=== PATIENT | male | born 1960 | race African-American/Black ===

== ENCOUNTER 2017-02-24 05:55 | Emergency (ER) | payer MEDICAID ==
[~2017-02-24] VITALS: Ht 188 cm; Wt 95.5 kg
[2017-02-24 05:57] VITALS: BP 163/86; PULSE 74; RESP 16; TEMP 98.7; O2SAT 97
[2017-02-24] MEDS ORDERED: OXYC1TAB35 PO (06:02)
[2017-02-24] MEDS ORDERED: METO25TA3 PO (06:02)
--- NOTE | 2017-02-24 06:06 | PD ---
HPI Chief Complaint: Bite or Sting Time Seen by Provider: 06:06 Travel History International Travel<30 days: No Contact w/Intl Traveler<30days: No Traveled to known affect area: No History of Present Illness HPI 56-year-old black male just released from a branch correction this evening presents to emergency department for evaluation of right knee pain. He states that he was bitten by a spider while in correction on the last week of January. He states that he was in [place] and felt something bite him in the knee. Since then he's had pain and tingling in his leg. He has had no fever chills. No nausea vomiting. Symptoms are mild. PFSH Past Medical History Narrative Medical Hypertension Hypertension: Yes Tetanus Vaccination: > 5 Years Influenza Vaccination: No Past Surgical History Other Surgery: Yes (LEFT KNEE ) Social History Alcohol Use: Yes Tobacco Use: No Substance Use: No Allergies-Medications (Allergen,Severity, Reaction): Coded Allergies: No Known Allergies (Unverified , 02/24/17) Reported Meds & Prescriptions Reported Meds & Active Scripts Active Reported Metoprolol Tartrate 25 Mg Tab 25 Mg PO DAILY Oxycodone-Acetaminophen 7.5-325 mg Tab 1 Tab PO Q4H PRN Review of Systems General / Constitutional: No: Fever Eyes: No: Visual changes HENT: No: Headaches Cardiovascular: No: Chest Pain or Discomfort Respiratory: No: Shortness of Breath Gastrointestinal: No: Abdominal Pain Genitourinary: No: Dysuria Musculoskeletal: Positive: Arthralgias, Pain, No: Limited ROM, Edema Skin: No Rash Neurologic: Positive: Paresthesia, No: Weakness Psychiatric: No: Depression Endocrine: No: Polydipsia Hematologic/Lymphatic: No: Easy Bruising Physical Exam Narrative GENERAL: This is a well-nourished, well-developed patient, in no apparent distress. SKIN: No rashes, ecchymoses or lesions. Warm and dry. HEAD: Atraumatic. Normocephalic. EYES: PERRL, EOMI, no discharge or injection. No scleral icterus. EARS: Clear NOSE: Nasal turbinates appear normal. THROAT: Mucosa pink and moist. Airway patent. NECK: Trachea midline. supple, moves head freely. LUNGS: Clear to auscultation. CV: Regular in rhythm. ABDOMEN: Soft nontender. EXT: No clubbing cyanosis or edema. Data Data Last Documented VS Vital Signs Date Time Temp Pulse Resp B/P (MAP) Pulse Ox O2 Delivery O2 Flow Rate FiO2 02/24/17 05:57 98.7 74 16 163/86 (111) 97 Room Air MDM Medical Decision Making Medical Screen Exam Complete: Yes Emergency Medical Condition: No Medical Record Reviewed: No Differential Diagnosis MDM: High Differential diagnoses: Abscess, folliculitis, cellulitis, lymphangitis, abrasion, contact dermatitis Narrative Course A medical screening exam was performed: At the time of evaluation the presenting medical condition was determined not to be of an emergent nature. The patient was given the option of receiving additional care, but declined. Patient was given options for additional community resources from which to obtain care. The Patient Has Been advised to seek medical attention for their presenting complaint. The patient has been advised to return to the ER at any time if an emergent condition develops. Diagnosis Primary Impression: Encounter for medical screening examination Condition: Stable Perfecto Keller Feb 24, 2017 06:06
== END 2017-02-24 06:49 | disposition left against medical advice (07) ==
LOC: NEPD 05:55
DX: M25.561 Pain in right knee (principal)
CPT/HCPCS: 99281